=== PATIENT | male | born 1950 | race Caucasian/White ===

== ENCOUNTER → 2018-02-01 | Outpatient (CLI) | payer OTHER ==
--- NOTE | 2018-02-01 15:09 | DIAGNOSTIC IMAGING REPORT ---
CT SCAN OF THE CHEST WITHOUT IV CONTRAST CLINICAL HISTORY: Nicotine dependence. COMPARISON STUDY: No priors. TECHNIQUE: CT scan of the thorax was performed from the thoracic inlet to the upper abdomen. Images are reviewed in the axial, sagittal, and coronal planes. IV contrast was not administered for this examination as per the referring clinician. A dose lowering technique was utilized adhering to the principles of ALARA. CT DOSE: 207.68 mGy.cm FINDINGS: Thyroid: Imaged portions of the thyroid gland are normal in size and attenuation. Thoracic aorta: There is atherosclerotic calcification of the thoracic aorta, which is normal in caliber and demonstrates standard 3-vessel arch anatomy. Heart: The heart is normal in size and without pericardial effusion. The coronary arteries are densely calcified. Lungs and pleural spaces: There is moderate to advanced emphysema. The trachea is patent. Secretions are present within the left lower lobe bronchi. Diffuse peribronchial thickening is observed. There is a 1.4 x 1.1 cm pleural-based nodule in the right middle lobe seen on image #201. This contains a coarse calcification and central low-attenuation which likely represents fat. A 4 mm left upper lobe nodule is seen on image #99. Apical scarring and calcification is observed. Mediastinum: There are scattered subcentimeter mediastinal lymph nodes. These are not pathologically enlarged by size criteria. Yessenia: Not well assessed without IV contrast. Axillae: There is no axillary lymphadenopathy. Upper abdomen: Partially visualized upper abdominal viscera is within normal limits. Skeletal structures: The Skeletal structures are osteopenic. Mild degenerative change is seen throughout the thoracic spine. No lytic or blastic bony lesions are seen. IMPRESSION: 1. Moderate to advanced emphysema. 2. There is a 1.4 x 1.1 cm pleural-based nodule in the right middle lobe. This is pathologically indeterminant and contains a coarse calcification and central low attenuation that likely represents fat. These findings suggest that this lesion may represent a benign hamartoma. Follow-up chest CT in 3 months time is recommended for reassessment. 3. There is a 4 mm pathologically indeterminant left upper lobe pulmonary nodule. This should be followed as per the Fleischner criteria. See below. 4. There is no airspace consolidation or pleural effusion. 5. Diffuse peribronchial thickening suggests reactive air disease. Please refer to below summary of Fleischner criteria recommendations for follow-up of incidental CT nodules (H Diane, Guidelines for management of small pulmonary nodules detected on CT scans: A statement from the Fleischner Society, Radiology 237: [id number].) SOLID NODULES Solitary nodule size: <6 mm * low risk patients: no follow-up needed * high risk patients: optional CT at 12 months Solitary nodule size: 6-8 mm * low risk patients: follow-up at 6-12 months, then consider further follow-up at 18-24 months * high risk patients: initial follow-up CT at 6-12 months and then at 18-24 months if no change Solitary nodule size: >8 mm * either low or high risk patients - consider follow-up CT at 3 months, and/or CT-PET, and/or biopsy Multiple nodules size: <6 mm * low risk patients: no routine follow-up * high risk patients: optional CT at 12 months Multiple nodules size: 6-8 mm * low risk patients: follow-up at 3-6 months, then consider further follow-up at 18-24 months * high risk patients: follow-up at 3-6 months, then at 18-24 months if no change Multiple nodules size: >8 mm * low risk patients: follow-up at 3-6 months, then consider further follow-up at 18-24 months * high risk patients: follow-up at 3-6 months, then at 18-24 months if no change Note: newly detected indeterminate nodule in persons 35 years of age or older. * low risk patients: minimal or absent history of smoking and/or other known risk factors * high risk patients: history of smoking or of other known risk factors (e.g. first degree relative with lung cancer, or exposure to asbestos, radon, uranium) * if a nodule up to 8 mm is partly solid or is ground glass further follow-up is required after 24 months to exclude possible slow growing adenocarcinoma (RUBI) SUBSOLID NODULES Solitary pure ground-glass nodule * nodule size <6 mm - no CT follow-up required * nodule size >=6 mm - follow-up CT at 6-12 months, then every 2 years until 5 years Solitary part-solid nodule * nodule size <6 mm - no CT follow-up required * nodule size >=6 mm - follow-up CT at 3-6 months. If unchanged, and solid component remains <6 mm, then annual follow-up for 5 years Multiple subsolid nodules * nodule size <6 mm - follow-up CT at 3-6 months, consider further follow-up at 2 and 4 years if stable * nodule size >=6 mm - follow-up CT at 3-6 months, subsequent management based on the most suspicious nodule(s) Electronically signed by: Adryan Sheldon M.D. 02/01/2018 3:07 PM Dictated Date/Time: 02/01/2018 2:53 PM
== END ==
LOC: C.CTS 14:42
PROVIDERS: ATTEND Internal Medicine
DX: J43.9 Emphysema, unspecified (principal); R91.1 Solitary pulmonary nodule; Z87.891 Personal history of nicotine dependence